=== PATIENT | female | born 1965 | race Caucasian/White ===

== ENCOUNTER 2019-12-02 13:48 | Outpatient (CLI) | payer OTHER ==
--- NOTE | 2019-12-16 13:26 | Mammography Report ---
BILATERAL DIGITAL SCREENING MAMMOGRAM 3D/2D WITH AUGMENTATION: 12/02/2019 CLINICAL: Routine screening. No prior exams were available for comparison. There are scattered fibroglandular elements in both br easts. There is an oval asymmetry in the right breast middle depth inferior region seen on the mediolateral oblique view only. There is an asymmetry in the left breast anterior depth central to the nipple seen on the craniocauda l view only. No other significant masses or calcifications are seen in either breast. Bilateral retropectoral sali ne implants are intact. IMPRESSION: INCOMPLETE: NEEDS ADDITIONAL IMAGING EVALUATION 1) The oval asymmetry in the right breast middle depth inferior region seen on the mediolateral obliq ue view only is indeterminate. Additional views with possible ultrasound are recommended. 2) The asymmetry in the left breast anterior depth central to the nipple seen on the craniocaudal vie w only is indeterminate. Additional views with possible ultrasound are recommended. This exam was interpreted at Station ID: [id number]. NOTE: For mammograms, a report in lay terms will be sent to the patient. Approximately 15% of breast malignancies will not be visualized mammographically. In the management of a palpable breast mass, a negative mammogram must not discourage biopsy of a clinically suspicious lesion. Electronically Signed By: Kendall Ceron M.D. slc/:12/16/2019 12:46:04 ACR BI-RADS Category 0: Incomplete 3340F PARENCHYMAL PATTERN: (A) - The breast(s) demonstrate(s) scattered fibroglandular densities. BI-RADS CATEGORY: (0) - 0 Mammo and [place] [id number] Immediate follow-up LATERALITY: (B)
== END 2019-12-02 13:49 | disposition home or self-care (01) ==
LOC: DI 13:48
PROVIDERS: ATTEND Nurse Practitioner Family
DX: Z12.31 Encounter for screening mammogram for malignant neoplasm of breast (principal); R92.8 Other abnormal and inconclusive findings on diagnostic imaging of breast
CPT/HCPCS: 77063; 77067

== ENCOUNTER 2020-01-15 08:07 | Outpatient (CLI) | payer OTHER ==
--- NOTE | 2020-01-16 16:15 | Mammography Report ---
BILATERAL DIGITAL DIAGNOSTIC MAMMOGRAM 3D/2D: 01/15/2020 CLINICAL: Patient returns today to evaluate asymmetries in bilateral breasts. Comparison is made to exam dated: 12/02/2019 mammogram - [facility]. There are sca ttered fibroglandular elements in both breasts. The previously seen asymmetry in the left breast does not persist with additional views, compatible w ith normal fibroglandular tissue. There is a 1 cm focal asymmetry in the right breast at 6 o'clock middle depth. This correlates as an incidental finding. There also is a 0.7 cm oval mass with a circumscribed margin in the right breast at 7 o'clock anterio r depth. This is seen in additional views. No other significant masses, calcifications, or other findings are seen in either breast. IMPRESSION: INCOMPLETE: NEEDS ADDITIONAL IMAGING EVALUATION The 1 cm focal asymmetry in the right breast at 6 o'clock middle depth is indeterminate. An ultrasou nd is recommended. The 0.7 cm oval mass in the right breast at 7 o'clock anterior depth is indeterminate. An ultrasound is recommended. This exam was interpreted at Station ID: [id number]. NOTE: For mammograms, a report in lay terms will be sent to the patient. Approximately 15% of breast malignancies will not be visualized mammographically. In the management of a palpable breast mass, a negative mammogram must not discourage biopsy of a clinically suspicious lesion. SUMMARY: Targeted ultrasound is recommended for further evaluation and will be scheduled immediately following this exam. Electronically Signed By: Fabian damian/bruna:01/15/2020 11:35:11 ACR BI-RADS Category 0: Incomplete 3340F PARENCHYMAL PATTERN: (A) - The breast(s) demonstrate(s) scattered fibroglandular densities. BI-RADS CATEGORY: (0) - 0 Ultrasound [id number] Immediate follow-up LATERALITY: (R)
--- NOTE | 2020-01-16 16:15 | Ultrasound Report ---
LIMITED ULTRASOUND OF RIGHT BREAST: 01/15/2020 CLINICAL: Patient returns today to evaluate asymmetry in the right breast. Comparison is made to exams dated: 01/15/2020 mammogram, 12/02/2019 mammogram, and 12/02/2019 mammogra m - [facility]. Ultrasound of the right breast 6-7 o'clock region was performed. There is a 0.6 cm x 0.8 cm x 0.6 cm cluster of cysts in the right breast at 7 o'clock middle depth 9 cm from the nipple. This correlates with mammography findings. There also is a 1.2 cm x 0.9 cm x 0.5 cm oval mass in the right breast at 6 o'clock posterior depth 7 cm from the nipple. This oval mass is hypoechoic with fatty hilum. This correlates with mammograph y findings. IMPRESSION: PROBABLY BENIGN The 0.6 cm x 0.8 cm x 0.6 cm cluster of cysts in the right breast at 7 o'clock middle depth is probab ly benign. The 1.2 cm x 0.9 cm x 0.5 cm oval mass in the right breast at 6 o'clock posterior depth resembles a l ymph node and is probably benign. A follow-up right mammogram and an ultrasound in 6 months is recommended to demonstrate stability. This exam was interpreted at Station ID: [id number]. Electronically Signed By: Fabian brady:01/15/2020 12:01:20 Ultrasound BI-RADS: 3 Probably benign BI-RADS CATEGORY: (3) - 3 Mammo and US [id number] 6 month follow-up LATERALITY: (R)
== END 2020-01-15 08:08 | disposition home or self-care (01) ==
LOC: DI 08:07
PROVIDERS: ATTEND Nurse Practitioner Family
DX: N60.11 Diffuse cystic mastopathy of right breast (principal); N63.15 Unspecified lump in the right breast, overlapping quadrants
CPT/HCPCS: 76642; 77066

== ENCOUNTER 2020-03-16 10:20 | Outpatient (CLI) | payer OTHER | END 2020-03-16 10:21 | disposition home or self-care (01) | LOC: COV 10:20 | PROVIDERS: ATTEND Family Medicine | DX: R53.83 Other fatigue (principal); M79.10 Myalgia, unspecified site; R19.7 Diarrhea, unspecified; Z20.828 Contact with and (suspected) exposure to other viral communicable diseases ==

== ENCOUNTER 2020-07-15 08:09 | Outpatient (CLI) | payer OTHER ==
--- NOTE | 2020-07-16 09:42 | Mammography Report ---
UNILATERAL RIGHT DIGITAL DIAGNOSTIC MAMMOGRAM 3D/2D: 07/15/2020 CLINICAL: Patient returns for short term follow-up of a probably benign mass in the right breast. Pat ient returns for short term follow-up of a probably benign mass in the right breast. Comparison is made to exams dated: 01/15/2020 mammogram, 12/02/2019 mammogram, and 12/02/2019 mammogra m - [facility]. There are scattered fibroglandular elements in right breast. Stable 1 cm focal asymmetry in the right breast at 6 o'clock middle depth. Stable 0.7 cm mass in the right breast at 6 o'clock anterior depth. No other significant masses or calcifications are seen in the breast. IMPRESSION: BENIGN There is no mammographic evidence of malignancy. Return to annual screening schedule is recommended. This exam was interpreted at Station ID: [id number]. NOTE: For mammograms, a report in lay terms will be sent to the patient. Approximately 15% of breast malignancies will not be visualized mammographically. In the management of a palpable breast mass, a negative mammogram must not discourage biopsy of a clinically suspicious lesion. Electronically Signed By: Lyle Montaño M.D. jr/:07/15/2020 09:20:17 ACR BI-RADS Category 2: Benign Finding(s) 3342F PARENCHYMAL PATTERN: (A) - The breast(s) demonstrate(s) scattered fibroglandular densities. BI-RADS CATEGORY: (2) - 2 Unspecified - other [id number] return to screening LATERALITY: (B)
== END 2020-07-15 08:10 | disposition home or self-care (01) ==
LOC: DI 08:09
PROVIDERS: ATTEND Nurse Practitioner Family
DX: R92.8 Other abnormal and inconclusive findings on diagnostic imaging of breast (principal); N63.13 Unspecified lump in the right breast, lower outer quadrant

== ENCOUNTER 2020-09-23 08:00 | Outpatient (CLI) | payer OTHER ==
[2020-09-23 14:35] LABS: BILIRUBIN,URINE NEGATIVE (NEGATIVE); GLUCOSE, URINE (UA) NEGATIVE (NEGATIVE); KETONES,URINE (UA) NEGATIVE (NEGATIVE); LEUKOCYTE ESTERASE, URINE NEGATIVE (NEGATIVE); NITRITE,URINE POSITIVE (NEGATIVE); OCCULT BLOOD,URINE NEGATIVE (NEGATIVE); PROTEIN,URINE NEGATIVE (NEGATIVE); UROBILINOGEN,URINE 0.2 (NORMAL) E.U./dL (NORMAL)
[2020-09-23 14:37] LABS: CLARITY,URINE SL. CLOUDY (CLEAR)
[2020-09-23 15:02] LABS: BACTERIA,URINE Moderate /HPF (None Seen); RBC,URINE 0-5 /HPF (0-5); SQUAMOUS EPITHELIAL CELL,UR RARE Squamous (<= Few)
== END 2020-09-23 23:59 | disposition home or self-care (01) ==
LOC: LAB.R 08:00
PROVIDERS: ATTEND Emergency Medicine
DX: R30.0 Dysuria (principal)
CPT/HCPCS: 81001; 87086; 87181

== ENCOUNTER 2020-10-30 10:15 | Outpatient (CLI) | payer OTHER ==
[2020-10-30 14:55] LABS: BASOPHILS % (AUTO) 0.4 %; EOSINOPHILS # (AUTO) 0.2 10^3/uL (0.0-0.7); EOSINOPHILS % (AUTO) 2.9 %; HCT - HEMATOCRIT 41.3 % (37.0-47.0); HGB - HEMOGLOBIN 13.7 g/dL (12.0-16.0); LYMPHOCYTES # (AUTO) 1.8 10^3/uL (1.5-3.5); LYMPHOCYTES % (AUTO) 34.8 %; MEAN CORPUSCULAR HEMOGLOBIN 30.3 pg (27.0-31.0); MEAN CORPUSCULAR HGB CONC 33.2 g/dL (32.0-36.0); MEAN CORPUSCULAR VOLUME 91.4 fL (81.0-99.0); MEAN PLATELET VOLUME 9.2 fL (7.9-10.8); MONOCYTES # (AUTO) 0.4 10^3/uL (0.0-1.0); NEUTROPHILS # (AUTO) 2.8 10^3/uL (1.5-6.6); NEUTROPHILS % (AUTO) 54.7 %; PLT - PLATELET COUNT 319 10^3/uL (130-450); RED BLOOD COUNT 4.52 10^6/uL (4.20-5.40); RED CELL DISTRIBUTION WIDTH 12.2 % (12.0-15.0); WHITE BLOOD COUNT 5.1 x10^3/uL (4.8-10.8)
[2020-10-30 15:20] LABS: ALBUMIN 4.2 g/dL (3.2-5.5); ALBUMIN/GLOBULIN RATIO 1.1 (1.0-2.2); ALKALINE PHOSPHATASE 56 IU/L (42-121); ALT ALANINE AMINOTRANSFERASE 55 IU/L (10-60); AST ASPARTATE AMINOTRANSFERASE 41 IU/L (10-42); BILIRUBIN,TOTAL 1.1 mg/dL (0.2-1.0); BUN - BLOOD UREA NITROGEN 16 mg/dL (6-20); CARBON DIOXIDE - CO2 25 mmol/L (21-32); CHLORIDE 102 mmol/L (101-111); CHOLESTEROL 216 mg/dL; CREATININE 0.7 mg/dL (0.4-1.0); GFR - MDRD 87 (>89); GLUCOSE 104 mg/dL (70-100); HDL CHOLESTEROL 31 mg/dL; LDL CHOLESTEROL,CALCULATED 136 mg/dL; LDL/HDL RATIO 4.4 (<4.4); POTASSIUM 3.8 mmol/L (3.5-5.0); SODIUM 138 mmol/L (135-145); TOTAL PROTEIN 8.2 g/dL (6.7-8.2); TRIGLYCERIDES 244 mg/dL; VLDL CHOLESTEROL 49 mg/dL
[2020-10-30 15:25] LABS: CREATININE,URINE 233.8 mg/dL; MICROALBUM/CREATININE RATIO,UR 23.1 ug/mg (<30.0); MICROALBUMIN,URINE 5.4 mg/dL (0-300.0)
[2020-10-30 15:29] LABS: THYROID STIMULATING HORMONE 2.5 uIU/mL (0.34-5.60)
== END 2020-10-30 10:16 | disposition home or self-care (01) ==
LOC: LAB.S 10:15
PROVIDERS: ATTEND Physician Assistant
DX: N39.0 Urinary tract infection, site not specified (principal); Z84.1 Family history of disorders of kidney and ureter; Z79.899 Other long term (current) drug therapy; Z82.49 Family history of ischemic heart disease and other diseases of the circulatory system; E66.9 Obesity, unspecified; K21.9 Gastro-esophageal reflux disease without esophagitis; G47.33 Obstructive sleep apnea (adult) (pediatric); I10 Essential (primary) hypertension
CPT/HCPCS: 36415; 80053; 80061; 82043; 82570; 83721; 84443; 85025

== ENCOUNTER 2021-02-28 08:00 | Outpatient (CLI) | payer OTHER ==
--- NOTE | 2021-02-28 11:08 | XRAY Report ---
PROCEDURE: Lumbar Spine Complete INDICATIONS: LUMBAR RADICULOPATHY TECHNIQUE: 5 views of the lumbar spine were acquired. COMPARISON: 10/24/2019 lumbar spine radiographs FINDINGS: There are 5 nonrib-bearing lumbar-type vertebral bodies of normal height and alignment. Disc height l oss at L4-L5 and L5-S1. Facet hypertrophy from L2-L3 through L5-S1. Oblique views demonstrate mild to moderate neural foraminal narrowing at L3-L4 and L4-L5. IMPRESSION: Lower lumbar spine degenerative changes producing mild-moderate neural foraminal narrowi ng at L3-L4 and L4-L5. Consider MRI for further evaluation. Reviewed by: Lyle Montaño MD on 02/28/2021 11:07 AM PST Approved by: Lyle Montaño MD on 02/28/2021 11:07 AM PST Station ID: [id number]
== END 2021-02-28 23:59 | disposition home or self-care (01) ==
LOC: DI.S 08:00
PROVIDERS: ATTEND Physician Assistant Medical
DX: M51.36 Other intervertebral disc degeneration, lumbar region (principal); M48.061 Spinal stenosis, lumbar region without neurogenic claudication; M47.816 Spondylosis without myelopathy or radiculopathy, lumbar region; M47.817 Spondylosis without myelopathy or radiculopathy, lumbosacral region

== ENCOUNTER 2023-01-08 10:36 | Outpatient (CLI) | payer OTHER ==
--- NOTE | 2023-01-09 10:18 | Mammography Report ---
BILATERAL DIGITAL DIAGNOSTIC MAMMOGRAM 3D/2D WITH AUGMENTATION: 01/08/2023 CLINICAL: Focal left breast pain. Due for bilateral. Comparison is made to exams dated: 07/15/2020 mammogram, 12/02/2019 mammogram, and 01/15/2020 mammogra m - [facility]. There are scattered areas of fibroglandular density in both breasts (category b / 25%-50% glandular t issue). No significant masses, calcifications, or other findings are seen in either breast. Bilateral silicon e breast implants are intact. IMPRESSION: INCOMPLETE: NEEDS ADDITIONAL IMAGING EVALUATION No mammographic evidence of malignancy. A targeted ultrasound is recommended and will immediately follow. Based on the Tyrer Cuzick model (a risk assessment model) the patients lifetime risk is 6.5% and her 10 year risk is 2.2%. According to the ACR, ACS, and NCCN guidelines, an annual breast MRI exam richie g with mammogram is recommended if the patients lifetime risk is 20% or greater. This exam was interpreted at Station ID: [id number]. NOTE: For mammograms, a report in lay terms will be sent to the patient. Approximately 15% of breast malignancies will not be visualized mammographically. In the management of a palpable breast mass, a negative mammogram must not discourage biopsy of a clinically suspicious lesion. Electronically Signed By: Kendall Ceron M.D. slc/:01/08/2023 11:29:05 ACR BI-RADS Category 0: Incomplete 3340F PARENCHYMAL PATTERN: (A) - The breast(s) demonstrate(s) scattered fibroglandular densities. BI-RADS CATEGORY: (0) - 0 Ultrasound [id number] Immediate follow-up LATERALITY: (B)
--- NOTE | 2023-01-09 10:18 | Ultrasound Report ---
LIMITED ULTRASOUND OF LEFT BREAST: 01/08/2023 CLINICAL: Intermittent pain in left breast. Comparison is made to exams dated: 01/08/2023 mammogram, 07/15/2020 mammogram, 01/15/2020 ultrasound, 01/15/2020 mammogram, 12/02/2019 mammogram, and 12/02/2019 mammogram - [facility]. Color flow and real-time ultrasound of the left breast 3-5 o'clock region were performed. Angel scale images of the real-time examination were reviewed. There is a benign normal lymph node in the left breast at 5 o'clock middle depth. Color flow imaging demonstrates that there is no vascularity present. There also is a benign simple cyst measuring 0.3 cm in the left breast at 4 o'clock posterior depth. This simple cyst is anechoic. This correlates as an incidental finding. Color flow imaging demonst rates that there is no vascularity present. Left breast implant noted. IMPRESSION: BENIGN There is no sonographic evidence of malignancy. No mass or significant cyst in the left breast in the region of pain. A 1 year screening mammogram is recommended. Exam findings were conveyed to the patient. This exam was interpreted at Station ID: [id number]. Electronically Signed By: Kendall Ceron M.D. slc/:01/08/2023 11:55:05 Ultrasound BI-RADS: 2 Benign BI-RADS CATEGORY: (2) - 2 Mammogram [id number] 1 year screening LATERALITY: (B)
== END 2023-01-08 10:37 | disposition home or self-care (01) ==
LOC: DI 10:36
PROVIDERS: ATTEND Physician Assistant Medical
DX: N64.4 Mastodynia (principal); R92.323 Mammographic fibroglandular density, bilateral breasts

== ENCOUNTER 2023-03-01 07:30 | Outpatient (CLI) | payer OTHER ==
[2023-03-01 15:23] LABS: BASOPHILS % (AUTO) 0.6 %; EOSINOPHILS # (AUTO) 0.2 10^3/uL (0.0-0.7); EOSINOPHILS % (AUTO) 2.6 %; HCT - HEMATOCRIT 41.4 % (37.0-47.0); HGB - HEMOGLOBIN 13.5 g/dL (12.0-16.0); LYMPHOCYTES # (AUTO) 2.1 10^3/uL (1.5-3.5); LYMPHOCYTES % (AUTO) 31.2 %; MEAN CORPUSCULAR HEMOGLOBIN 29.3 pg (27.0-31.0); MEAN CORPUSCULAR HGB CONC 32.6 g/dL (32.0-36.0); MEAN PLATELET VOLUME 9.3 fL (7.9-10.8); MONOCYTES # (AUTO) 0.4 10^3/uL (0.0-1.0); MONOCYTES % (AUTO) 6.3 %; NEUTROPHILS # (AUTO) 3.9 10^3/uL (1.5-6.6); PLT - PLATELET COUNT 329 10^3/uL (130-450); RED CELL DISTRIBUTION WIDTH 12.9 % (12.0-15.0); WHITE BLOOD COUNT 6.7 x10^3/uL (4.8-10.8)
[2023-03-01 15:38] LABS: THYROID STIMULATING HORMONE 5.83 uIU/mL (0.34-5.60)
[2023-03-01 15:39] LABS: ALBUMIN 4.2 g/dL (3.2-5.5); ALBUMIN/GLOBULIN RATIO 1.1 (1.0-2.2); ALKALINE PHOSPHATASE 75 IU/L (42-121); ALT ALANINE AMINOTRANSFERASE 62 IU/L (10-60); AST ASPARTATE AMINOTRANSFERASE 45 IU/L (10-42); BILIRUBIN,TOTAL 0.5 mg/dL (0.2-1.0); BUN - BLOOD UREA NITROGEN 17 mg/dL (6-20); CALCIUM 9.4 mg/dL (8.5-10.3); CARBON DIOXIDE - CO2 27 mmol/L (21-32); CHLORIDE 103 mmol/L (101-111); CHOL/HDL RATIO 6.1 (<4.4); CHOLESTEROL 213 mg/dL; CREATININE 0.7 mg/dL (0.6-1.3); GFR - MDRD 86 (>89); GLUCOSE 135 mg/dL (74-104); HDL CHOLESTEROL 35 mg/dL; LDL CHOLESTEROL,CALCULATED 143 mg/dL; LDL/HDL RATIO 4.1 (<4.4); POTASSIUM 3.5 mmol/L (3.5-4.5); SODIUM 138 mmol/L (135-145); TOTAL PROTEIN 7.9 g/dL (6.4-8.9); TRIGLYCERIDES 174 mg/dL (48-352); VLDL CHOLESTEROL 35 mg/dL
[2023-03-02 06:46] LABS: ESTIMATED AVERAGE GLUCOSE 143 mg/dL (70-100); HEMOGLOBIN A1c% 6.6 % (4.27-6.07)
== END 2023-03-01 07:31 | disposition home or self-care (01) ==
LOC: LAB.S 07:30
PROVIDERS: ATTEND Physician Assistant Medical
DX: I10 Essential (primary) hypertension (principal); E66.9 Obesity, unspecified; F33.9 Major depressive disorder, recurrent, unspecified
CPT/HCPCS: 36415; 80053; 80061; 82306; 82607; 83036; 83721; 84439; 84443; 85025

== ENCOUNTER 2023-04-13 09:18 | Outpatient (CLI) | payer OTHER ==
[2023-04-13 16:14] LABS: THYROID STIMULATING HORMONE 3.57 uIU/mL (0.34-5.60)
== END 2023-04-13 09:19 | disposition home or self-care (01) ==
LOC: LAB.S 09:18
PROVIDERS: ATTEND Physician Assistant Medical
DX: E03.9 Hypothyroidism, unspecified (principal)
CPT/HCPCS: 36415; 84443

== ENCOUNTER 2023-07-17 09:37 | Outpatient (CLI) | payer OTHER ==
[2023-07-17 15:30] LABS: BASOPHILS % (AUTO) 0.3 %; EOSINOPHILS # (AUTO) 0.2 10^3/uL (0.0-0.7); EOSINOPHILS % (AUTO) 2.2 %; HCT - HEMATOCRIT 42.4 % (37.0-47.0); LYMPHOCYTES # (AUTO) 2.2 10^3/uL (1.5-3.5); LYMPHOCYTES % (AUTO) 32.7 %; MEAN CORPUSCULAR HEMOGLOBIN 30.7 pg (27.0-31.0); MEAN PLATELET VOLUME 9.6 fL (7.9-10.8); MONOCYTES # (AUTO) 0.5 10^3/uL (0.0-1.0); MONOCYTES % (AUTO) 7.6 %; NEUTROPHILS # (AUTO) 3.8 10^3/uL (1.5-6.6); NEUTROPHILS % (AUTO) 56.9 %; PLT - PLATELET COUNT 325 10^3/uL (130-450); RED BLOOD COUNT 4.56 10^6/uL (4.20-5.40); RED CELL DISTRIBUTION WIDTH 12.3 % (12.0-15.0); WHITE BLOOD COUNT 6.7 x10^3/uL (4.8-10.8)
[2023-07-17 15:47] LABS: ALBUMIN 4.2 g/dL (3.2-5.5); ALKALINE PHOSPHATASE 80 IU/L (42-121); ALT ALANINE AMINOTRANSFERASE 55 IU/L (10-60); AST ASPARTATE AMINOTRANSFERASE 41 IU/L (10-42); BILIRUBIN,TOTAL 0.4 mg/dL (0.2-1.0); BUN - BLOOD UREA NITROGEN 16 mg/dL (6-20); CALCIUM 9.4 mg/dL (8.5-10.3); CARBON DIOXIDE - CO2 29 mmol/L (21-32); CHLORIDE 102 mmol/L (101-111); CHOL/HDL RATIO 7.2 (<4.4); CHOLESTEROL 230 mg/dL; CREATININE 0.7 mg/dL (0.6-1.3); GFR - MDRD 86 (>89); GLUCOSE 131 mg/dL (74-104); HDL CHOLESTEROL 32 mg/dL; LDL CHOLESTEROL,CALCULATED 157 mg/dL; LDL/HDL RATIO 4.9 (<4.4); POTASSIUM 3.6 mmol/L (3.5-4.5); SODIUM 138 mmol/L (135-145); THYROID STIMULATING HORMONE 2.31 uIU/mL (0.34-5.60); TOTAL PROTEIN 8.4 g/dL (6.4-8.9); TRIGLYCERIDES 207 mg/dL (48-352); VLDL CHOLESTEROL 41 mg/dL
[2023-07-17 20:44] LABS: ESTIMATED AVERAGE GLUCOSE 134 mg/dL (70-100); HEMOGLOBIN A1c% 6.3 % (4.27-6.07)
== END 2023-07-17 09:38 | disposition home or self-care (01) ==
LOC: LAB.S 09:37
PROVIDERS: ATTEND Physician Assistant Medical
DX: E78.5 Hyperlipidemia, unspecified (principal); R53.83 Other fatigue; R73.9 Hyperglycemia, unspecified; E03.9 Hypothyroidism, unspecified
CPT/HCPCS: 36415; 80053; 80061; 83036; 83721; 84443; 85025